=== PATIENT | female | born 1985 | race Caucasian/White ===

== ENCOUNTER 2017-06-26 02:50 | Emergency (ER) | payer SELFPAY ==
[2017-06-26 03:43] LABS: BASO % 0 % (0-3); EOS # 0.1 x10^3/uL (0.0-0.7); EOS % 1 % (0-3); HEMATOCRIT 38.6 % (36.0-47.0); HEMOGLOBIN 13.3 g/dL (12.0-15.5); LYMPH # 1.8 x10^3/uL (1.0-4.8); LYMPH % 32 % (24-48); MEAN CORPUSCULAR HEMOGLOBIN 32 pg (25-35); MEAN CORPUSCULAR HGB CONC 35 g/dL (31-37); MEAN CORPUSCULAR VOLUME 93 fL (79-100); MONO # 0.3 x10^3/uL (0.0-1.1); MONO % 6 % (0-9); NEUT # 3.3 x10^3uL (1.8-7.7); NEUT % 60 % (31-73); PLATELET COUNT 255 x10^3/uL (140-400); RED BLOOD COUNT 4.17 x10^6/uL (3.50-5.40); RED CELL DISTRIBUTION WIDTH 12.5 % (11.5-14.5); WHITE BLOOD COUNT 5.5 x10^3/uL (4.0-11.0)
[2017-06-26 03:50] LABS: BARBITURATES NEG (NEG); BENZODIAZEPINES NEG (NEG); CANNABINOIDS POS (NEG); COCAINE NEG (NEG); METHADONE NEG (NEG); OPIATES NEG (NEG); PHENCYCLIDINE NEG (NEG)
[2017-06-26 03:53] LABS: CALCIUM 8.7 mg/dL (8.5-10.1); CREATININE 0.8 mg/dL (0.6-1.0); GFR 83.7; POTASSIUM 3.2 mmol/L (3.5-5.1)
[2017-06-26 03:56] LABS: AMPHETAMINE/METHAMPHETAMINE NEG (NEG)
--- NOTE | 2017-06-26 04:05 | PHYS DOC ---
General Chief Complaint: SEIZURE Stated Complaint: UNRESPONSIVE Time Seen by MD: 02:58 Source: patient, EMS Exam Limitations: other (uncooperative) Problems: History of Present Illness Initial Comments 32-year-old female brought to the ED by EMS. EMS reports they were called at [facility] with the patient is employed, coworkers reported that the patient had been unresponsive with normal vital signs for the past 20 minutes. She was apparently found with [address] facing one another reclined on them facing the television. EMS reports on arrival the patient was arousable awake and oriented 3 and reported she had history of pseudoseizures. In route to the ED EMS reports the patient again became less responsive, they report that they could observe the patient watching them through squinted eyes. They also report positive arm drop test as initially the patient's arm would fall limp however after verbalizing that patients with seizure would reflexively hip themselves in the face the patient began mimicking this behavior. On ED arrival as the patient is wheeled down the hallway I observed the patient with eyes open looking around however once in exam room the patient would not respond. Vital signs stable only history is pseudoseizures labs and urine studies initiated. Timing/Duration: other Severity: mild Modifying Factors: improves with other Associated Symptoms: other Allergies: Coded Allergies: Unable to Assess (Unverified , 06/26/17) Past Medical History Medical History: other (pseudoseizure) Surgical History: other (unknown) Social History Smoker: other (unknown) Alcohol: other (unknown) Drugs: other (unknown) Review of Systems All Other Systems: Reviewed and Negative (unobtainable patient not responding.) Physical Exam General Appearance: no apparent distress (appears to be sleeping but reactive and avoidant to noxious stimuli.) Eyes: bilateral eye normal inspection, bilateral eye PERRL, bilateral eye EOMI Ear, Nose, Throat: normal ENT inspection, normal pharynx Neck: non-tender, supple Respiratory: normal breath sounds, no respiratory distress Cardiovascular: normal peripheral pulses, regular rate, rhythm Gastrointestinal: normal bowel sounds, soft Extremities: normal inspection, no pedal edema Neurologic/Psychiatric: other (initially uncooperative and apparently lethargic /sleeping but observed watching through squinted eyes and awaken moving in exam room when left alone.) Orders, Labs, Meds Potassium 3.2, lactic acid 0.9, drug screen positive for cannabinoids I tried to discuss results with the patient, she could obviously here me but would not respond. No indication for admission, eventually patient's mother and sister did come to the ED to check on the patient. As they entered the patient' s exam room the patient was observed to open her eyes and be fully awake alert and oriented 3. She became agitated refusing potassium replacement and requesting immediate discharge. As the patient was exiting through the lobby she refused to stop at the registration desk to sign paperwork, her family remained in the waiting room and as the patient left through the emergency department exterior doors security happened to pull up responding to another call. Patient put her hands on her head and reportedly said "I'm the one you' re looking for." She came back to registration, completed paperwork and left with family. IMPRESSIONS: Pseudoseizure Mild hypokalemia Cannabinoids noted in urine Noncompliance Departure Time of Disposition: 04:52 Disposition: 01 HOME, SELF-CARE Diagnosis: pseudoseizure, mild hypokalemia, marijuana abuse Condition: STABLE Patient Instructions: Hypokalemia-Brief, Marijuana Abuse-Brief Additional Instructions: No evidence of seizure or other acute medical condition noted. Eat one banana daily until doctor follow up. Discontinue substance abuse, seek medical assistance if necessary. Follow up with your doctor Wednesday for potassium recheck. Return to ED with new or changing symptoms. JOHN RAI DO Jun 26, 2017 04:05
[2017-06-26] MEDS ORDERED: IV NORMAL SALINE 1,000ML 1,000 ML IV SCH (04:30)
[2017-06-26] MEDS ORDERED: POTASSIUM CHLORIDE 20 MEQ TABLET.ER. PO ONE (04:30)
[2017-06-26 05:00] VITALS: BP 121/69
== END 2017-06-26 05:09 | disposition home or self-care (01) ==
LOC: ER 02:50
DX: F44.5 Conversion disorder with seizures or convulsions (principal); E87.6 Hypokalemia; F12.10 Cannabis abuse, uncomplicated; Z91.19 Patient's noncompliance with other medical treatment and regimen
CPT/HCPCS: 36415; 80048; 80307; 82550; 83605; 85025; 99284; G0479

== ENCOUNTER 2020-12-24 18:37 | Emergency (ER) | payer SELFPAY ==
[~2020-12-24] VITALS: Ht 170.2 cm; Wt 101.1 kg
[2020-12-24] MEDS ORDERED: HALOPERIDOL LACT 5 MG/ML VIAL. ONE (18:39)
[2020-12-24] MEDS ORDERED: ZIPRASIDONE IM 20 MG VIAL. IM ONE ×2 (18:42→19:00)
[2020-12-24] MEDS ORDERED: IV NORMAL SALINE 1,000ML 1,000 ML IV SCH (18:45)
[2020-12-24] MEDS ORDERED: diphenhydrAMINE 50 MG/ML VIAL ONE (18:47)
[2020-12-24] MEDS ORDERED: MIDAZOLAM HCL PF 5 MG/5 ML VIAL. ONE (18:47)
[2020-12-24] MEDS ORDERED: KETAMINE HCL IN NACL, ISO-OSM 50 MG/5 ML SYRINGE ONE (18:55)
[2020-12-24] MEDS ORDERED: KETAMINE HCL 500 MG/10 ML VIAL. ONE (18:56)
[2020-12-24] MEDS ORDERED: diphenhydrAMINE 50 MG/ML VIAL IM ONE (19:00)
[2020-12-24] MEDS ORDERED: MIDAZOLAM HCL PF 5 MG/5 ML VIAL. IM ONE (19:00)
--- NOTE | 2020-12-24 19:12 | PHYS DOC ---
Past History Past Medical History: Other Past Surgical History: No Surgical History Alcohol Use: None Drug Use: None General Adult EDM: Chief Complaint: OVERDOSE HPI: HPI: 35-year-old female past medical history of pseudoseizures and obesity, presents to the ED brought in by EMS after patient took 70 tablets of 600 mg gabapentin (bottle filled 11/29 by Mark Anthony Ward NP) and posted on Facebook she was going to take a bunch of pills to kill herself. Patient with history of Tylenol overdose. Upon arrival patient was running respirations responded to sternal rub. Pt started screaming with coherent speech but could be be verbally escalated and required medication for her and staff safety. History and review of systems limited due to this. Review of Systems: Review of Systems: Review of systems unobtainable due to agitation Current Medications: Current Meds: Current Medications Medications (Trade) Dose Ordered Sig/Candace Start Time Stop Time Status Last Admin Dose Admin Diphenhydramine HCl (Benadryl) 50 mg 1X ONCE 12/24/20 19:00 12/24/20 19:01 DC 12/24/20 18:51 50 MG Haloperidol Lactate (Haldol) 5 mg STK-MED ONCE 12/24/20 18:39 12/24/20 18:39 DC Ketamine HCl (Ketamine) 500 mg STK-MED ONCE 12/24/20 18:56 12/24/20 18:56 DC Midazolam HCl (Versed) 4 mg 1X ONCE 12/24/20 19:00 12/24/20 19:01 DC 12/24/20 18:51 4 MG Sodium Chloride 1,000 ml @ 1,000 mls/hr Q1H 12/24/20 18:45 12/24/20 19:44 Ziprasidone (Geodon Im) 20 mg 1X ONCE 12/24/20 19:00 12/24/20 19:01 DC Allergies: Allergies: Allergies Coded Allergies Type Severity Reaction Last Updated Verified Unable to Assess 06/26/17 No Physical Exam: PE: Constitutional: Well developed, well nourished, no acute distress, non-toxic appearance. HENT: Normocephalic, atraumatic, moist mucous membranes, forced eye closure Eyes: PERRLA, EOMI, conjunctiva normal, no discharge. Neck: Normal range of motion, supple, Cardiovascular: S1/2 present, regular rhythm Lungs & Thorax: Speaking in full sentences, bilateral equal chest rise, no tac hypnea or increased work of breathing Abdomen: soft, no tenderness, Skin: Warm, dry, no erythema, no rash. [] Extremities: No tenderness, no cyanosis, Neurologic: seizure-like movements with sternal rub for first 1-2 minutes upon ed arrival, screaming "get off of me," not cooperative or answering questions, moving all four extremities, no focal deficits noted. [] Psychologic: agitated, delirious EKG: EKG: Sinus rhythm 70 bpm, no axis deviation, normal intervals, no T wave inversions, no ST elevations or ST depressions Radiology/Procedures: Radiology/Procedures: IMAGING REPORT Signed PATIENT: PAWAN GRANT ACCOUNT: [id number] : 1985 LOCATION: ER AGE: 35 SEX: F EXAM STATUS: REG ER ORD. PHYSICIAN: CECY LANDRY DO REASON: ams, overdose PROCEDURE: CHEST AP ONLY XR CHEST 1V Clinical History: Reason: ams, overdose / Spl. Instructions: / History: Technique: AP view of the chest was obtained at 12/24/2020 9:15 PM. Comparison: None. Findings: The heart is normal size. The pulmonary vessels are top normal limits in size. A few linear opacities lung bases likely discoid atelectasis. Impression: No evidence of an acute cardiopulmonary process. Electronically signed by: Kaleb Osborne III, MD (12/24/2020 9:37 PM) [facility] DICTATED AND SIGNED BY: KALEB OSBORNE III, MD DATE: 12/24/202132 CC: PCP,NO; CECY LANDRY DO ~MTH0 0 Heart Score: C/O Chest Pain: No Risk Factors: Risk Factors: DM, Current or recent (<one month) smoker, HTN, HLP, family history of CAD, obesity. Risk Scores: Score 0 - 3: 2.5% MACE over next 6 weeks - Discharge Home Score 4 - 6: 20.3% MACE over next 6 weeks - Admit for Clinical Observation Score 7 - 10: 72.7% MACE over next 6 weeks - Early Invasive Strategies Course & Med Decision Making: Course & Med Decision Making Pertinent Labs and Imaging studies reviewed. (See chart for details) Concern for suicide attempt with suspected gabapentin overdose although patient's Tylenol level is elevated. This could represent chronic Tylenol overdose. NAC initiated in ED. Liver functions are within normal limits. D/w poison ctrl-could be chronic although odd that LFTs and coags are wnl. 4 hour tylenol at 10pm. Patient was sedated with Geodon, Versed, Benadryl and ketamine. Patient hemodynamically stable and protecting her airway. Will admit to the ICU for further medical management. Critical Care: Authorized and Performed by: Cecy Landry DO Total critical care time: approximately 45 minutes Due to a high probability of clinically significant, life threatening deterior ation, the patient required my highest level of preparedness to intervene emergently and I personally spent this critical care time directly and personally managing the patient. This critical care time included obtaining a history; examining the patient; pulse oximetry; ventilator management if necessary; ordering and review of studies; arranging urgent treatment with development of a management plan; evaluation of patient's response to treatment; frequent reassessment; discussion with patient/family; and, discussions with other providers. This critical care time was performed to assess and manage the high probability of imminent, life-threatening deterioration that could result in multi-organ failure. It was exclusive of separately billable procedures and t reating other patients and teaching time. Please see MDM section and the rest of the note for further information on patient assessment and treatment. Dragon Disclaimer: Dragon Disclaimer: This electronic medical record was generated, in whole or in part, using a voice recognition dictation system. Departure Departure: Impression: Primary Impression: Tylenol overdose Additional Impression: Suicide attempt by drug overdose Disposition: ADMITTED INPATIENT Admitting Physician: Isaias Rome Condition: CRITICAL Referrals: PCP,NO (PCP) CECY LANDRY DO Dec 24, 2020 19:12
[2020-12-24 19:57] LABS: BASO % 1 % (0-3); EOS # 0.1 x10^3/uL (0.0-0.7); EOS % 1 % (0-3); HEMATOCRIT 41.5 % (36.0-47.0); HEMOGLOBIN 13.7 g/dL (12.0-15.5); LYMPH # 1.4 x10^3/uL (1.0-4.8); LYMPH % 32 % (24-48); MEAN CORPUSCULAR HEMOGLOBIN 31 pg (25-35); MEAN CORPUSCULAR HGB CONC 33 g/dL (31-37); MEAN CORPUSCULAR VOLUME 94 fL (79-100); MONO # 0.2 x10^3/uL (0.0-1.1); MONO % 5 % (0-9); NEUT # 2.6 x10^3uL (1.8-7.7); NEUT % 61 % (31-73); PLATELET COUNT 210 x10^3/uL (140-400); RED CELL DISTRIBUTION WIDTH 12.7 % (11.5-14.5); WHITE BLOOD COUNT 4.3 x10^3/uL (4.0-11.0)
[2020-12-24 20:07] LABS: CALCIUM 8.3 mg/dL (8.5-10.1); CREATININE 0.6 mg/dL (0.6-1.0); GFR 114.4; POTASSIUM 3.4 mmol/L (3.5-5.1)
[2020-12-24 20:13] LABS: DIRECT BILIRUBIN 0.1 mg/dL (0.0-0.2); MAGNESIUM 1.9 mg/dL (1.8-2.4); TOTAL BILIRUBIN 0.5 mg/dL (0.2-1.0)
[2020-12-24 20:15] LABS: ACETAMIN 95.6 mcg/mL (10-30); ETHANOL < 10 mg/dL (0-10); SALIC 3.7 mg/dL (2.8-20.0)
[2020-12-24 20:19] LABS: PREG TEST PT QUAL NEGATIVE (NEG)
[2020-12-24] MEDS ORDERED: ACETYLCYSTEINE INJ 15 GM in IV DEXTROSE 5% 200 ML IV ONE (21:00)
[2020-12-24 21:18] LABS: BILIRUBIN,URINE NEG (NEG); CLARITY,URINE HAZY; COLOR,URINE YELLOW; GLUCOSE,URINE NEG (NEG); NITRITE,URINE NEG (NEG); UROBILINOGEN,URINE 0.2 mg/dL (0.2 mg/dL)
[2020-12-24 21:19] LABS: BACTERIA,URINE 0 /HPF (0-FEW); RBC,URINE OCC /HPF (0-2); SQUAMOUS EPITHELIAL CELL,UR MOD /LPF; WBC,URINE 0 /HPF (0-4)
--- NOTE | 2020-12-24 21:39 | RAD ---
XR CHEST 1V Clinical History: Reason: ams, overdose / Spl. Instructions: / History: Technique: AP view of the chest was obtained at 12/24/2020 9:15 PM. Comparison: None. Findings: The heart is normal size. The pulmonary vessels are top normal limits in size. A few linear opacities lung bases likely discoid atelectasis. Impression: No evidence of an acute cardiopulmonary process. Electronically signed by: Nirav Liang III, MD (12/24/2020 9:37 PM) [facility]
[2020-12-24 21:42] LABS: BARBITURATES NEG (NEG); BENZODIAZEPINES POS (NEG); CANNABINOIDS POS (NEG); COCAINE NEG (NEG); METHADONE NEG (NEG); OPIATES NEG (NEG); PHENCYCLIDINE NEG (NEG)
[2020-12-24 21:43] LABS: AMPHETAMINE/METHAMPHETAMINE NEG (NEG)
[2020-12-24 22:54] LABS: CALCIUM 7.8 mg/dL (8.5-10.1); CREATININE 0.4 mg/dL (0.6-1.0); GFR 182.7
[2020-12-24 22:59] LABS: ALBUMIN 2.7 g/dL (3.4-5.0); ALBUMIN/GLOBULIN RATIO 0.9 (1.0-1.7); TOTAL BILIRUBIN 0.5 mg/dL (0.2-1.0); TOTAL PROTEIN 5.6 g/dL (6.4-8.2)
[2020-12-24] MEDS ORDERED: ACETYLCYSTEINE IV ONE (23:00)
[2020-12-24] MEDS ORDERED: DEXTROSE 5% IV ONE (23:00)
[2020-12-24 23:09] LABS: ACETAMIN 52.2 mcg/mL (10-30); POTASSIUM 5.4 mmol/L (3.5-5.1)
[2020-12-24] MEDS ORDERED: chlorproMAZINE IM 50 MG/2 ML AMPUL IM ONE (23:15)
[2020-12-25] MEDS ORDERED: ONDANSETRON PF 4 MG/2 ML VIAL. ONE (00:08)
[2020-12-25] MEDS ORDERED: diphenhydrAMINE 50 MG/ML VIAL IM ONE (00:15)
[2020-12-25] MEDS ORDERED: HALOPERIDOL LACT 5 MG/ML VIAL. IVP ONE (00:15)
[2020-12-25] MEDS ORDERED: chlorproMAZINE IM 50 MG/2 ML AMPUL IM ONE (00:15)
[2020-12-25] MEDS ORDERED: ONDANSETRON PF 4 MG/2 ML VIAL. IVP ONE (00:15)
[2020-12-25] MEDS ORDERED: ACETYLCYSTEINE INJ 10 GM in IV DEXTROSE 5% 1,000 ML IV ONE (03:00)
--- NOTE | 2020-12-25 03:40 | EKG ---
[address] [address] Test Date: 2020-12-24 Test Time: 20:31:58 Pat Name: PAWAN GRANT Department: Room: Gender: F Administrative Services Specialist: ANIBAL : 1985 Requested By: SANDRA LANDRY Order Number: [id number] Reading MD: Measurements Intervals [place] Rate: 70 P: 46 TN: 154 QRS: 22 QRSD: 92 T: 18 QT: 406 QTc: 441 Interpretive Statements SINUS RHYTHM LOW LIMB LEAD VOLTAGE NO SPECIFIC ECG ABNORMALITIES RI6.02 No previous ECG available for comparison
[2020-12-25] MEDS ORDERED: ZIPRASIDONE IM 20 MG VIAL. IM ONE (13:30)
[2020-12-25] MEDS: DEXMEDETOMIDINE 400 MCG in IV NORMAL SALINE 100ML 96 ML IV PRN (17:00)
[2020-12-26 01:46] LABS: CALCIUM 8.5 mg/dL (8.5-10.1); CREATININE 0.5 mg/dL (0.6-1.0); GFR 141.2; POTASSIUM 3.8 mmol/L (3.5-5.1)
[2020-12-26 01:51] LABS: ALBUMIN 2.8 g/dL (3.4-5.0); ALBUMIN/GLOBULIN RATIO 0.9 (1.0-1.7); DIRECT BILIRUBIN 0.2 mg/dL (0.0-0.2); TOTAL BILIRUBIN 0.5 mg/dL (0.2-1.0); TOTAL PROTEIN 5.8 g/dL (6.4-8.2)
[2020-12-26 01:53] LABS: ACETAMIN < 2 mcg/mL (10-30)
[2020-12-26 02:01] LABS: BASO % 1 % (0-3); EOS # 0.1 x10^3/uL (0.0-0.7); EOS % 2 % (0-3); HEMATOCRIT 40.5 % (36.0-47.0); HEMOGLOBIN 13.9 g/dL (12.0-15.5); LYMPH # 1.3 x10^3/uL (1.0-4.8); LYMPH % 29 % (24-48); MEAN CORPUSCULAR HEMOGLOBIN 32 pg (25-35); MEAN CORPUSCULAR HGB CONC 34 g/dL (31-37); MEAN CORPUSCULAR VOLUME 94 fL (79-100); MONO # 0.2 x10^3/uL (0.0-1.1); MONO % 5 % (0-9); NEUT # 2.8 x10^3uL (1.8-7.7); NEUT % 64 % (31-73); PLATELET COUNT 187 x10^3/uL (140-400); RED BLOOD COUNT 4.31 x10^6/uL (3.50-5.40); RED CELL DISTRIBUTION WIDTH 12.5 % (11.5-14.5); WHITE BLOOD COUNT 4.4 x10^3/uL (4.0-11.0)
[2020-12-26] MEDS: DEXMEDETOMIDINE 400 MCG in IV NORMAL SALINE 100ML 96 ML IV PRN ×7 (03:18→23:50)
[2020-12-26] MEDS ORDERED: ATROPINE 0.5 MG/5 ML DISP.SYRIN. IV PRN (03:45)
[2020-12-26] MEDS ORDERED: IV NORMAL SALINE 500ML 500 ML IV PRN (03:45)
[2020-12-26] MEDS ORDERED: KETAMINE HCL IN NACL, ISO-OSM 50 MG/5 ML SYRINGE IV ONE ×2 (11:15→12:15)
[2020-12-26] MEDS ORDERED: OLANZapine IM 10 MG VIAL. IM ONE ×3 (12:15→23:45)
[2020-12-26] MEDS ORDERED: IV NORMAL SALINE 1,000ML 1,000 ML IV ONE (20:15)
[2020-12-27] VITALS (12 sets, daily range): BP systolic 118–169; BP diastolic 60–95
[2020-12-27] MEDS ORDERED: KETAMINE HCL 500 MG/10 ML VIAL. ONE ×2 (00:10→11:09)
[2020-12-27] MEDS ORDERED: KETAMINE HCL IN NACL, ISO-OSM 50 MG/5 ML SYRINGE ONE (00:24)
[2020-12-27] MEDS: DEXMEDETOMIDINE 400 MCG in IV NORMAL SALINE 100ML 96 ML IV PRN ×4 (02:44→17:27)
--- NOTE | 2020-12-27 03:00 | NUR ---
pt is RASS =+1-2 pt is yelling and screaming "I am pissing the bed". Howell checked and tubing was pinched off--unkinked and urine flowing through tubing freely and pt calmed down somewhat.
[2020-12-27] MEDS: KETAMINE HCL IN NACL, ISO-OSM 50 MG/5 ML SYRINGE IV ONE ×2 (08:29→20:25)
--- NOTE | 2020-12-27 10:12 | NUR ---
PT'S STRUCTURAL DRAFTER, MARIANNE RUIZ CALLED TO SPEAK WITH PT, PT REFUSED TO SPEAK WITH HIM AT THIS TIME
[2020-12-27] MEDS ORDERED: KETAMINE HCL 500 MG/10 ML VIAL. IV ONE ×2 (11:15→13:00)
[2020-12-27] MEDS ORDERED: KETAMINE HCL 500 MG/10 ML VIAL. IM ONE (11:15)
[2020-12-27] MEDS ORDERED: MIDAZOLAM HCL PF 5 MG/5 ML VIAL. IV ONE (18:30)
[2020-12-27] MEDS ORDERED: MIDAZOLAM HCL PF 5 MG/5 ML VIAL. IM ONE ×3 (20:00→20:45)
== END 2020-12-27 20:28 | disposition home or self-care (01) ==
LOC: EEVIPCON 18:37 → ER 18:37
DX: T39.1X2A Poisoning by 4-Aminophenol derivatives, intentional self-harm, initial encounter (principal); E66.9 Obesity, unspecified; Z20.822 Contact with and (suspected) exposure to COVID-19; Z68.34 Body mass index [BMI] 34.0-34.9, adult; Y92.89 Other specified places as the place of occurrence of the external cause
CPT/HCPCS: 36415; 71045; 80048; 80053; 80076; 80307; 80329; 81001; 82248; 83735; 84703; 85025; 85610; 85730; 87426; 93005; 96361; 96365; 96366; 96367; 96372; 96375; 96376; 99291; G0480; J0132; J1200; J2060; J2250; J3486; J3490; J7030; U0003